=== PATIENT | female | born 1955 | race Two or more races ===

== ENCOUNTER 2024-10-11 09:00 | Day surgery (SDC) | payer OTHER ==
[2024-10-09 09:42] VITALS: BP 111/75
[~2024-10-11] VITALS: Ht 157.5 cm; Wt 83.5 kg
[~2024-10-11 09:00] MED LIST: CRESTOL; GLUCOSAMINE; NORVAC; PROTONIX40 MG; SINGULAIR10 MG; VITAMIN B12; ZESTRIL40 M1; vitamin d
[2024-10-11] MEDS ORDERED: CEFAZOLIN SODIUM 1,000 MG VIAL ONE ×2 (09:29→10:08)
[2024-10-11] MEDS ORDERED: CHLORHEXIDINE GLUCONATE 120 ML BOTTLE TOP ONE ×2 (10:42→11:45)
[2024-10-11] MEDS ORDERED: CEFAZOLIN SODIUM 1,000 MG VIAL IV ONE (11:45)
[2024-10-11] MEDS ORDERED: MORPHINE SULFATE 2 MG/ML CARTRIDGE IV ONE (12:50)
== END 2024-10-11 16:10 | disposition home or self-care (01) ==
LOC: CIR.AMB 09:00
PROVIDERS: ATTEND Surgery
DX: C50.411 Malignant neoplasm of upper-outer quadrant of right female breast (principal); Z91.013 Allergy to seafood; R92.1 Mammographic calcification found on diagnostic imaging of breast